=== PATIENT | female | born 1965 | race Caucasian/White ===

== ENCOUNTER 2017-03-19 05:26 | Day surgery (SDC) | payer OTHER ==
[2017-03-19] MEDS ORDERED: Dextrose 5%-Lactated Ringers 1,000 ML IV SCH (06:30)
[2017-03-19] MEDS ORDERED: Lidocaine 1% with EPINEPHrine 1:100,000 50 ML MDV ONE (06:57)
[2017-03-19] MEDS ORDERED: Bupivacaine 0.5% 50 ML MDV ONE (06:57)
[2017-03-19] MEDS ORDERED: ceFAZolin 2 GM in Premix Bag 1 BAG IV ONE (07:15)
[2017-03-19] MEDS ORDERED: PHENobarbital 32.4 MG Tab PO ONE (07:15)
[2017-03-19] MEDS ORDERED: Midazolam 1 MG/ML 2 ML SDV ONE (07:17)
[2017-03-19] MEDS ORDERED: Propofol 200 MG/20 ML SDV ONE ×4 (07:17→08:20)
[2017-03-19] MEDS ORDERED: fentaNYL 100 MCG/2 ML SDV ONE (07:17)
[2017-03-19] MEDS ORDERED: Bacitracin Oint 1 GM U/D Packet ONE (07:41)
[2017-03-19] MEDS ORDERED: Albuterol/Ipratropium 3.0-0.5 MG/3 ML Neb Soln NEB ONE (08:27)
[2017-03-19] MEDS ORDERED: Acetaminophen 500 MG Tab PO ONE (09:13)
[2017-03-19 09:47] VITALS: BP 102/69
--- NOTE | 2017-03-23 09:37 | OR ---
DATE OF PROCEDURE: 03/19/2017 PREOPERATIVE DIAGNOSIS: Pilar cyst x2. POSTOPERATIVE DIAGNOSIS: Atypical pigmented lesion, mid back. PROCEDURE: 1. Excision of pilar cyst, right anterior parietal scalp (). 2. Excision of pilar cyst, left parietal scalp (). 3. Excision of atypical pigmented lesion mid back with layered closure ([id number]). ANESTHESIA: Local plus IV sedation. FORENSIC STRUCTURAL ENGINEER: Ella Hogan MS-3. INDICATION FOR PROCEDURE: The patient presents with 2 increasing symptomatic pilar cysts. The one located to the right of midline was quite large, and it was felt best to excise this in the operating room. She has a smaller pilar cyst on the left parietal scalp as well that will also be excised. The patient has, in the mid upper back, a pigmented lesion with a central area of loss of pigment. This would be somewhat suspicious for melanoma with area of central regression. Given this, this will be excised as well. Potential risks of the procedure including bleeding, infection, need for additional treatment if melanoma is identified were gone over with the patient, and she wishes to proceed. DETAILS OF PROCEDURE: The patient was taken to the operating room, placed in a left lateral decubitus position. IV sedation was administered, after which the scalp areas and back were both prepped and draped. The areas of concern were then anesthetized with 1% lidocaine mixed with Marcaine. Beginning with the larger pilar cyst on the right of midline, a small elliptical incision was made, and a disk of skin was removed, along with the underlying pilar cyst. This was located in the subcutaneous tissue plane typical for pilar cysts but without a connection to the skin per se. This lesion measured 2.2 cm, and the incision was closed with some 4-0 Vicryl stitch deep and then a 5-0 Prolene skin stitch. A similar incision was then made on the pilar cyst to the left of midline, and this was also excised intact. This cyst measured 1.2 cm, and closure as per the right-sided cyst was then accomplished. Attention was then taken to the lesion on the left midback. A transversely oriented ellipse was then mapped out, maintaining a small normal-appearing skin margin along its edges, and after this area was anesthetized with 1% lidocaine with Marcaine, the incision was made and this was carried down through skin and into subcutaneous tissue. The skin along with a disk of subcutaneous tissue was then removed. We were careful to maintain some separate subcutaneous tissue underneath the skin lesion to afford adequate devastaton, should this be found to be a melanoma. This incision was then closed with some 4-0 Vicryl stitch deep and a 5-0 Prolene skin stitch as well. The lesion itself measured 2.2 cm, and incision length was 4.0 cm. The patient was taken to the recovery room in satisfactory condition. Josh Franco MD /[id number]
== END 2017-03-19 10:05 | disposition home or self-care (01) ==
LOC: JP.SDS 05:26
PROVIDERS: ATTEND Surgery
DX: L72.11 Pilar cyst (principal); D22.5 Melanocytic nevi of trunk; E66.01 Morbid (severe) obesity due to excess calories; Z88.8 Allergy status to other drugs, medicaments and biological substances; Z91.012 Allergy to eggs; F17.210 Nicotine dependence, cigarettes, uncomplicated
CPT/HCPCS: 11403; 12032; 21011; 21012; 88304; 88305; A9270; J0690; J2250; J2704; J3010; J7042; J7620

== ENCOUNTER 2019-04-11 07:18 | Day surgery (SDC) | payer MEDICAID ==
[2019-04-11] MEDS ORDERED: Midazolam 1 MG/ML 2 ML SDV ONE (07:38)
[2019-04-11] MEDS ORDERED: Propofol 200 MG/20 ML SDV ONE ×3 (07:38→09:04)
[2019-04-11] MEDS ORDERED: fentaNYL 100 MCG/2 ML SDV ONE (07:38)
[2019-04-11] MEDS ORDERED: Sodium Chloride 0.9% 1,000 ML IV SCH (08:00)
[2019-04-11] MEDS ORDERED: Albuterol/Ipratropium 3.0-0.5 MG/3 ML Neb Soln NEB ONE (08:06)
[2019-04-11 10:21] VITALS: BP 117/67; PULSE 77
--- NOTE | 2019-04-11 12:25 | PROC ---
DATE OF PROCEDURE: 04/11/2019 SURGEON: Lars Pitt MD PROCEDURE: Colonoscopy. INDICATION: History of adenomatous colon polyps. DESCRIPTION OF PROCEDURE: Risks and goals of the procedure were reviewed with the patient, and she gave informed consent to proceed. She was brought back to the operating room. She was placed in a left lateral decubitus position. Time-out was held to confirm right patient, right side, right procedure. After adequate sedation was achieved, digital rectal exam was performed which was unremarkable. Following this, the flexible colonoscope was placed and advanced all through the colon to the cecum. Cecum identified by the appendiceal orifice and ileocecal valve. Scope was then fully withdrawn into the ascending colon. She was noted to have 2 polyps, one approximately 3 mm and the other 5 mm, removed using biopsy forceps. At the hepatic flexure, she was noted to have additional 2 polyps removed again using biopsy forceps. These were in the 2 to 4 mm range in size. There was a polyp in the proximal transverse colon that was removed using biopsy forceps, 3 to 4 mm in size. There was another polyp in the distal transverse colon that was removed again using biopsy forceps. This was approximately 3 mm in size. The scope was then withdrawn through the sigmoid colon. In the proximal rectum, she was noted to have a large polyp, approximately 1 cm in size, that was removed using snare cautery. There was a smaller hyperplastic appearing polyp in the rectum removed using the biopsy forceps. The scope was then retroflexed, straightened, and removed. No other mucosal polyps, masses, or lesions were noted, and the procedure was otherwise completed without complications. Lars Pitt MD /[id number]
--- NOTE | 2019-04-19 09:06 | LETTER ---
04/18/2019 Ms. Jena Guillory [address] [place] [address] RE: JENA ZENG : 1965 Dear Ms. Zeng: This letter concerns the pathology results from polyps removed at the time of your colonoscopy last week. There were multiple polyps removed. Most of these were tubular adenomatous polyps. There was one that was a tubular villous adenoma and one that was hyperplastic. These are polyps that potentially over several years can evolve into a colon cancer. Because of the multiple polyps and pathology results, I recommend that you have a followup colonoscopy in 2 years. If you have any questions concerning this result or recommendation, please feel free to contact me. Sincerely, /[id number]
== END 2019-04-11 10:47 | disposition home or self-care (01) ==
LOC: JP.SDS 07:18
PROVIDERS: ATTEND Hospitalist
DX: Z12.11 Encounter for screening for malignant neoplasm of colon (principal); D12.3 Benign neoplasm of transverse colon; D12.2 Benign neoplasm of ascending colon; K62.1 Rectal polyp; J45.909 Unspecified asthma, uncomplicated; G40.909 Epilepsy, unspecified, not intractable, without status epilepticus; F17.200 Nicotine dependence, unspecified, uncomplicated; E66.01 Morbid (severe) obesity due to excess calories; Z68.43 Body mass index [BMI] 50.0-59.9, adult; Z86.010 Personal history of colon polyps; Z86.718 Personal history of other venous thrombosis and embolism
CPT/HCPCS: 45380; 45385; 94640; J2250; J2704; J3010; J7030; 88305; J7620-GY